=== PATIENT | female | born 1990 | race Caucasian/White ===

== ENCOUNTER 2016-09-25 19:30 | Emergency (ER) | payer OTHER ==
[~2016-09-25 19:30] MED LIST: IBUPROFEN200 M1 PO; PRENATAL1 TAB PO; TUMS500 MG PO; TYLENOL325 MG PO
--- NOTE | 2016-09-25 20:31 | ED NURSING NOTES ---
Clinical Report - Nurses [facility] [address] [place] [address] 09/25/2016 19:30 Patient: DAISHA MORRIS TRIAGE Triage time 19:56. Acuity: LEVEL 3. Chief Complaint: COUGH, RUNNY NOSE, FEVER and "FLU" and (diarrhea). Alert. No acute distress. SEPSIS SCREEN: Sepsis Screen: negative. Negative (no infection suspected/documented). --20:03 Zonia Etienne R.N. 19:56 09/25/16. BP: 127/77 taken on the left arm, while sitting. HR: 99. RR: 20. O2 saturation: 100%. Temp: 97.8 F. Pain level now: 8/10. --20:03 Zonia Etienne R.N. 19:56 09/25/16. BP: 127/77 taken on the left arm, while sitting. HR: 99. RR: 20. O2 saturation: 100%. Temp: 97.8 F. Pain level now: 8/10. --20:04 Zonia Etienne R.N. Weight: 113.3 kg estimated. Height/Length: 64 inches Estimated. BMI: 42.9. --19:59 Zonia Etienne R.N. Medications None. --19:57 Zonia Etienne R.N. Allergies No Known Drug Allergy. --19:57 Zonia Etienne R.N. History Arrived by private vehicle. Historian: patient and family. Accompanied by family. Primary physician (lfory). Onset. (2 - 3 days ago). She has had a nasal discharge, chest congestion, chills, fatigue and sinus pain. She has had difficulty breathing. 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 (nyquil, benadryl). PAST MEDICAL HX: Immunizations: status is unknown. Last normal menstrual period- Aug 26. SOCIAL HX: Light tobacco smoker (cigarette)- less than 1/2 a pack per day. No alcohol use or drug use. FALL RISK ASSESSMENT: Fall risk assessment completed. No fall risk identified. NUTRITIONAL RISK ASSESSMENT: The nutritional risk assessment revealed no deficiencies. FUNCTIONAL ASSESSMENT: Functional assessment: no impairments noted. LEARNING NEEDS ASSESSMENT: The learning needs assessment revealed no barriers. SKIN INTEGRITY ASSESSMENT: Skin integrity risk assessment completed. No skin integrity risk identified. --20:03 Zonia Etienne R.N. ADDITIONAL SURGERIES: Ankle rt . Dilatation & Curettage. Tonsillectomy. --19:58 Zonia Etienne R.N. Interventions ID band on patient. To room. --20:03 Zonia Etienne R.N. PHYSICAL ASSESSMENT Ambulatory to room. GENERAL / NEURO / PSYCH: Alert. Oriented X 4. Appears anxious. HEENT: Mucous membranes are pink. RESPIRATORY: Respirations not labored. CVS: Capillary refill less than 2 seconds. SKIN: Skin is warm and dry. Normal skin turgor. --20:05 Zonia Etienne R.N. NURSING PROGRESS NOTES Head of bed elevated. Two patient identifiers checked. Call light placed in reach. Patient ready for evaluation. --20:06 Zonia Etienne R.N. DISPOSITION / DISCHARGE 20:50. Condition at departure: unchanged. No learning barriers present. Discharge instructions provided and reviewed with the patient. Reviewed medication(s) side effects, precautions, dosing and course information. Prescription(s) given to the patient. Patient verbalized understanding. Written instructions provided in Panamanian. The patient was discharged home and accompanied by family. She left the Emergency Department ambulatory and via private vehicle. Family member driving. Medication list reviewed and validated. --21:03 Zonia Etienne R.N. 19:56 09/25/16. BP: 127/77 taken on the left arm, while sitting. HR: 99. RR: 20. O2 saturation: 100%. Temp: 97.8 F. Pain level now: 04/21. --21:03 Zonia Etienne R.N. Locked/Released at 09/25/2016 21:04 by Zonia Etienne R.N.
--- NOTE | 2016-09-25 20:31 | ED NURSING NOTES ---
Clinical Report - Nurses [facility] [address] [place] [address] 09/25/2016 19:30 Patient: DAISHA MORRIS TRIAGE Triage time 19:56. Acuity: LEVEL 3. Chief Complaint: COUGH, RUNNY NOSE, FEVER and "FLU" and (diarrhea). Alert. No acute distress. SEPSIS SCREEN: Sepsis Screen: negative. Negative (no infection suspected/documented). --20:03 Zonia Etienne R.N. 19:56 09/25/16. BP: 127/77 taken on the left arm, while sitting. HR: 99. RR: 20. O2 saturation: 100%. Temp: 97.8 F. Pain level now: 8/10. --20:03 Zonia Etienne R.N. 19:56 09/25/16. BP: 127/77 taken on the left arm, while sitting. HR: 99. RR: 20. O2 saturation: 100%. Temp: 97.8 F. Pain level now: 8/10. --20:04 Zonia Etienne R.N. Weight: 113.3 kg estimated. Height/Length: 64 inches Estimated. BMI: 42.9. --19:59 Zonia Etienne R.N. Medications None. --19:57 Zonia Etienne R.N. Allergies No Known Drug Allergy. --19:57 Zonia Etienne R.N. History Arrived by private vehicle. Historian: patient and family. Accompanied by family. Primary physician (flory). Onset. (2 - 3 days ago). She has had a nasal discharge, chest congestion, chills, fatigue and sinus pain. She has had difficulty breathing. 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 (nyquil, benadryl). PAST MEDICAL HX: Immunizations: status is unknown. Last normal menstrual period- Aug 26. SOCIAL HX: Light tobacco smoker (cigarette)- less than 1/2 a pack per day. No alcohol use or drug use. FALL RISK ASSESSMENT: Fall risk assessment completed. No fall risk identified. NUTRITIONAL RISK ASSESSMENT: The nutritional risk assessment revealed no deficiencies. FUNCTIONAL ASSESSMENT: Functional assessment: no impairments noted. LEARNING NEEDS ASSESSMENT: The learning needs assessment revealed no barriers. SKIN INTEGRITY ASSESSMENT: Skin integrity risk assessment completed. No skin integrity risk identified. --20:03 Zonia Etienne R.N. ADDITIONAL SURGERIES: Ankle rt . Dilatation & Curettage. Tonsillectomy. --19:58 Zonia Etienne R.N. Interventions ID band on patient. To room. --20:03 Zonia Etienne R.N. PHYSICAL ASSESSMENT Ambulatory to room. GENERAL / NEURO / PSYCH: Alert. Oriented X 4. Appears anxious. HEENT: Mucous membranes are pink. RESPIRATORY: Respirations not labored. CVS: Capillary refill less than 2 seconds. SKIN: Skin is warm and dry. Normal skin turgor. --20:05 Zonia Etienne R.N. NURSING PROGRESS NOTES Head of bed elevated. Two patient identifiers checked. Call light placed in reach. Patient ready for evaluation. --20:06 Zonia Etienne R.N. DISPOSITION / DISCHARGE 20:50. Condition at departure: unchanged. No learning barriers present. Discharge instructions provided and reviewed with the patient. Reviewed medication(s) side effects, precautions, dosing and course information. Prescription(s) given to the patient. Patient verbalized understanding. Written instructions provided in [place]. The patient was discharged home and accompanied by family. She left the Emergency Department ambulatory and via private vehicle. Family member driving. Medication list reviewed and validated. --21:03 Zonia Etienne R.N. 19:56 09/25/16. BP: 127/77 taken on the left arm, while sitting. HR: 99. RR: 20. O2 saturation: 100%. Temp: 97.8 F. Pain level now: 04/21. --21:03 Zonia Etienne R.N. Locked/Released at 09/25/2016 21:04 by Zonia Etienne R.N.
--- NOTE | 2016-09-25 20:31 | ED CLINICAL REPORT ---
Clinical Report - Physicians/Mid Levels [facility] [address] [place] [address] 09/25/2016 19:30 Patient: DAISHA MORRIS Time Seen: 2004; initial patient contact, initial documentation, patient care assumed. Arrived- By private vehicle. Historian- patient. HISTORY OF PRESENT ILLNESS Chief Complaint: COUGH and FEVER. This started about 2 weeks ago and is still present. The illness is described as moderate. The patient has had a cough, nasal congestion, fever of 102 F, muscle aches and a nasal discharge. No sputum production, difficulty breathing, chest discomfort or pain or sore throat. No sinus pressure, sinus drainage or ear pain. Additional history - The patient has had contact with a sick family member. Symptoms of the sick contact include fever and cough. (multiple family members sick). They have had similar symptoms. Similar symptoms previously: None. Recent medical care: Not recently seen/assessed. REVIEW OF SYSTEMS All systems otherwise negative, except as recorded above. PAST HISTORY See nurses notes. ADDITIONAL SURGERIES: Ankle rt . Dilatation & Curettage. Tonsillectomy. --19:58 Zonia Etienne R.N. SOCIAL HISTORY Light tobacco smoker. Second-hand smoke exposure. No alcohol use or drug use. No recent travel. Is a local resident. FAMILY HISTORY Negative. ADDITIONAL NOTES The nursing notes have been reviewed with agreement regarding the chief complaint, HPI, ROS, PMH and patient medications and allergies. PHYSICAL EXAM Vital Signs: 09/25/2016 19:56 BP: 127/77. HR: 99. RR: 20. O2 saturation: 100%. Temp: 97.8 F. Pain level now: 8/10. Have been reviewed as normal and appear to be correct. Appearance: Alert. No acute distress. Eyes: Pupils equal, round and reactive to light. Eyes normal inspection. ENT: Ears normal. Nose normal. Pharynx normal. Uvula midline. Neck: Normal inspection. Neck supple. CVS: Normal heart rate and rhythm. Heart sounds normal. Pulses normal. Respiratory: No respiratory distress. Breath sounds normal. Abdomen: Soft and nontender. No organomegaly. Back: Normal inspection. Skin: Skin warm and dry. Normal skin color. No rash. Normal skin turgor. Extremities: Extremities exhibit normal ROM. No lower extremity edema. Neuro: Oriented X 3. No motor deficit. No sensory deficit. PROGRESS AND PROCEDURES Patient counseled in person regarding the patient's stable condition and diagnosis. 20:31. Differential Diagnosis: Other possible considerations: flu, allergies, sinusitis, bronchitis, uri, pneumonia. Above considerations are based on history and physical exam. Differential diagnosis was discussed with patient. Disposition: Discharged home in good and unchanged condition (20:31). Condition: good and stable. CLINICAL IMPRESSION Acute bacterial mucopurulent bronchitis. INSTRUCTIONS Alternate Tylenol (Acetaminophen) and Motrin (Ibuprofen) for fever, temperature greater than 101 degrees. Take according to label instructions. Drink plenty of fluids for the next 24 hours until better. Do not smoke. Warnings: GENERAL WARNINGS: Return or contact your physician immediately if your condition worsens or changes unexpectedly, if not improving as expected, or if other problems arise. Specifically return if problem worsens. Prescription Medications: Zithromax 250 mg tablets: take 2 orally today, followed by 1 daily for the next 4 days. No refills. Substitution is permissible. Follow-up: Follow up with your doctor in about five days even if well. Summary of care provided to patient. Understanding of the discharge instructions verbalized by patient. (Electronically signed by Radha Walker A.R.N.P. 09/25/2016 22:09)
--- NOTE | 2016-09-25 22:09 | ED MED RECONCILIATION SUMMARY ---
Patient: DAISHA MORRIS Medication [facility]conciliation [facility] VisitID: [id number] [address] [place] [address] 26y, F Registration Date/Time: 09/25/2016 Weight: 113.3 kg Height/Length: 64 in. BMI: 42.9 ALLERGIES: No Known Drug Allergy The patient's Home Medications are listed below: NONE. The source(s) of the original Home Medication information: Not obtained. The following Medications were given to the patient in the Emergency Department: None. The following Medications were prescribed to the patient: Zithromax 250 mg tablets: take 2 orally today, followed by 1 daily for the next 4 days. No refills. Substitution is permissible. -- Radha Walker A.R.N.P.
--- NOTE | 2016-09-25 22:09 | ED MAR SUMMARY ---
..... Medication Administration Record [facility] [address], [place] [id number] Patient: DAISHA MORRIS Visit ID: [id number] 26y, F Weight: 113.3 kg Height/Length: 64 in BMI: 42.9 ALLERGIES: No Known Drug Allergy
--- NOTE | 2016-09-25 22:09 | ED MED RECONCILIATION SUMMARY ---
Patient: DAISHA MORRIS Medication Reconciliation Report [facility] VisitID: [id number] [address] [place] [address] 26y, F Registration Date/Time: 09/25/2016 Weight: 113.3 kg Height/Length: 64 in. BMI: 42.9 ALLERGIES: No Known Drug Allergy The patient's Home Medications are listed below: NONE. The source(s) of the original Home Medication information: Not obtained. The following Medications were given to the patient in the Emergency Department: None. The following Medications were prescribed to the patient: Zithromax 250 mg tablets: take 2 orally today, followed by 1 daily for the next 4 days. No refills. Substitution is permissible. -- Radha Walker A.R.N.P.
--- NOTE | 2016-09-25 22:09 | ED MAR SUMMARY ---
..... Medication Administration Record [facility] [address], [place] [id number] Patient: DAISHA MORRIS Visit ID: [id number] 26y, F Weight: 113.3 kg Height/Length: 64 in BMI: 42.9 ALLERGIES: No Known Drug Allergy
--- NOTE | 2016-09-25 22:09 | ED DISCHARGE INSTRUCTIONS ---
Patient: DAISHA MORRIS General Instructions [facility] VisitID: [id number] [place] [address] 26y, F Registration Date/Time: 09/25/2016 INSTRUCTIONS Alternate Tylenol (Acetaminophen) and Motrin (Ibuprofen) for fever, temperature greater than 101 degrees. Take according to label instructions. Drink plenty of fluids for the next 24 hours until better. Do not smoke. Warnings: GENERAL WARNINGS: Return or contact your physician immediately if your condition worsens or changes unexpectedly, if not improving as expected, or if other problems arise. Specifically return if problem worsens. Prescription Medications: Zithromax 250 mg tablets: take 2 orally today, followed by 1 daily for the next 4 days. No refills. Substitution is permissible. Follow-up: Follow up with your doctor in about five days even if well. Summary of care provided to patient. Understanding of the discharge instructions verbalized by patient. ADDITIONAL INFORMATION Bronchitis (Adult: Abx Tx) BRONCHITIS is an infection of the air passages (bronchial tubes). It often occurs during the common cold. Symptoms include cough with mucus (phlegm) and low-grade fever. Bronchitis usually lasts 7-14 days. Mild cases can be treated with simple home remedies. More severe infection is treated with an antibiotic. Home Care: If symptoms are severe, rest at home for the first 2-3 days. When you resume activity, don't let yourself get too tired. Do not smoke. Avoid being exposed to the smoke of others. You may use acetaminophen (Tylenol) or ibuprofen (Motrin, Advil) to control fever or pain, unless another medicine was prescribed for this. [NOTE: If you have chronic liver or kidney disease or ever had a stomach ulcer or GI bleeding, talk with your doctor before using these medicines.] Your appetite may be poor, so a light diet is fine. Avoid dehydration by drinking 6-8 glasses of fluids per day (water, soft, drinks, juices, tea, soup, etc.). Extra fluids will help loosen secretions in the lungs. [id number] cough medicines that containdextromethorphan(such as Robitussin DM) and decongestants (Actifed or Sudafed) may help relieve cough and congestion. [NOTE: Do not use decongestants if you have high blood pressure.] Finish all antibiotic medicine, even if you are feeling better after only a few days. Follow Up with your doctor or as directed if you dont start to feel better after three days. [NOTE: If you are age 65 or older, or if you have chronic asthma or COPD, we recommend a PNEUMOCOCCAL VACCINATION every five years and a yearly INFLUENZAVACCINATION (FLU-SHOT) every . Ask your doctor about this. If you had an X-ray, a radiologist will review it. You will be notified of any new findings that may affect your care.] Get Prompt Medical Attention if any of the following occur: Fever over 100.4F (38.0C) for more than three days Trouble breathing, wheezing or pain with breathing Coughing up blood or increased amounts of colored sputum Weakness, drowsiness, headache, facial pain, ear pain or a stiff neck Fever Control (Adult) A fever is a natural reaction of the body to an illness. In most cases, the temperature itself is not harmful. It actually helps the body fight infections. A fever does not need to be treated unless you feel very uncomfortable. Home Care If you feel warm, check your temperature. If you feel very uncomfortable and your temperature is at or higher than 100.4F (38C) oral, you may take acetaminophen (Tylenol) every 4 to 6 hours. If you cant take or keep down oral medicine, ask your pharmacist for Tylenol suppositories, which you can get without a prescription. If the fever does not respond to acetaminophen within 1 hour, take ibuprofen (Advil or Motrin). If this works, keep taking the ibuprofen every 6 to 8 hours. Note: If you have chronic liver or kidney disease or ever had a stomach ulcer or GI bleeding, talk with your doctor before using these medications. If either medication alone does not keep the fever down, you may alternate the two medicines every 3 to 4 hours, only if your healthcare provider has instructed you to do so. For example, take Motrin then wait 3 hours, take Tylenol then wait 3 hours, take Motrin, and so on. Follow your healthcare providers instructions exactly. Clothing: Keep clothing light because excess body heat is lost through the skin. The fever will go up if you wear extra layers or wrap in blankets. Fluids: Fever causes the body to lose water through evaporation. Drink plenty of fluids such as water, juice, clear sodas, gemma bhupendra, or lemonade. Do not use aspirin in anyone under 18 years of age who is ill with a fever. It can cause severe liver damage. Follow Up with your doctor or as advised by our staff if you do not get better after 48 hours. Get Prompt Medical Attention if any of the following occur: Fever does not get better after taking fever medication Fast or difficult breathing Earache, sinus pain, stiff or painful neck, headache, repeated diarrhea or vomiting You feel unusually irritable, drowsy, or confused A rash appears You feel weak or dizzy, or that you might faint Azithromycin Oral tablet What is this medicine? AZITHROMYCIN (az ith phyllis CAO sin) is a macrolide antibiotic. It is used to treat or prevent certain kinds of bacterial infections. It will not work for colds, flu, or other viral infections. How should I use this medicine? Take this medicine by mouth with a full glass of water. Follow the directions on the prescription label. The tablets can be taken with food or on an empty stomach. If the medicine upsets your stomach, take it with food. Take your medicine at regular intervals. Do not take your medicine more often than directed. Take all of your medicine as directed even if you think your are better. Do not skip doses or stop your medicine early. Talk to your personalized living manager regarding the use of this medicine in children. Special care may be needed. What side effects may I notice from receiving this medicine? Side effects that you should report to your doctor or health cardiac care nurse as soon as possible: allergic reactions like skin rash, itching or hives, swelling of the face, lips, or tongue confusion, nightmares or hallucinations dark urine difficulty breathing hearing loss irregular heartbeat or chest pain pain or difficulty passing urine redness, blistering, peeling or loosening of the skin, including inside the mouth white patches or sores in the mouth yellowing of the eyes or skin Side effects that usually do not require medical attention (report to your doctor or health cardiac care nurse if they continue or are bothersome): diarrhea dizziness, drowsiness headache stomach upset or vomiting tooth discoloration vaginal irritation What may interact with this medicine? Do not take this medicine with any of the following medications: lincomycin This medicine may also interact with the following medications: amiodarone antacids cyclosporine digoxin magnesium nelfinavir phenytoin warfarin What if I miss a dose? If you miss a dose, take it as soon as you can. If it is almost time for your next dose, take only that dose. Do not take double or extra doses. Where should I keep my medicine? Keep out of the reach of children. Store at room temperature between 15 and 30 degrees C (59 and 86 degrees F). Throw away any unused medicine after the expiration date. What should I tell my health care provider before I take this medicine? They need to know if you have any of these conditions: kidney disease liver disease irregular heartbeat or heart disease an unusual or allergic reaction to azithromycin, erythromycin, other macrolide antibiotics, foods, dyes, or preservatives or trying to get breast-feeding What should I watch for while using this medicine? Tell your doctor or health cardiac care nurse if your symptoms do not improve. Do not treat diarrhea with over the counter products. Contact your doctor if you have diarrhea that lasts more than 2 days or if it is severe and watery. This medicine can make you more sensitive to the sun. Keep out of the sun. If you cannot avoid being in the sun, wear protective clothing and use sunscreen. Do not use sun lamps or tanning beds/booths. You have been given the following additional information: Bronchitis, Antiobiotic Treatment (Adult) Fever Control (Adult) Azithromycin Oral tablet (Electronically signed by Radha Walker A.R.N.P. 09/25/2016 22:09)
== END 2016-09-25 20:50 | disposition home or self-care (01) ==
LOC: ED SRH 19:30
DX: J20.8 Acute bronchitis due to other specified organisms (principal); F17.200 Nicotine dependence, unspecified, uncomplicated

== ENCOUNTER 2016-10-27 13:51 | Outpatient (CLI) | payer OTHER ==
--- NOTE | 2016-10-27 14:41 | DIAGNOSTIC IMAGING REPORT ---
PROCEDURE: US BREAST ULTRASOUND - RIGHT INDICATION: MASTALGIA RIGHT BREAST TECHNIQUE: Velaqzuez scale ultrasound of the right breast. COMPARISON: None. FINDINGS: Normal breast parenchyma without evidence of cysts, mass or suspicious acoustic shadowing. IMPRESSION: 1. Normal right breast ultrasound 2. BIRADS 1- Negative.
== END 2016-10-27 23:00 ==
LOC: US SRH 13:51
DX: N64.4 Mastodynia (principal)

== ENCOUNTER 2017-03-04 10:34 | Outpatient (CLI) | payer OTHER ==
--- NOTE | 2017-03-04 14:36 | DIAGNOSTIC IMAGING REPORT ---
PROCEDURE: MR LOWER EXT JOINT WO CONT-RT INDICATION: RT ANKLE OA TECHNIQUE: T1 and STIR sagittal, axial, coronal and coronal-oblique images. COMPARISON: Right ankle x-ray 11/16/2016. FINDINGS: Torn anterior talofibular ligament. Tibiofibular, posterior talofibular, calcaneofibular and deltoid ligaments are intact. The peroneus longus, peroneus brevis, flexor hallucis longus, posterior tibialis and flexor digitorum longus tendons are intact. Normal extensor tendons. Normal Achilles tendon. Normal tibiotalar joint. No fracture or effusion. Normal sinus tarsi. Normal plantar fascia. IMPRESSION: 1. Torn anterior talofibular ligament.
== END 2017-03-04 23:00 | disposition home or self-care (01) ==
LOC: MRI SRH 10:34
DX: S93.491A Sprain of other ligament of right ankle, initial encounter (principal)

== ENCOUNTER 2017-03-24 22:30 | Emergency (ER) | payer OTHER ==
--- NOTE | 2017-03-25 03:28 | ED NURSING NOTES ---
Clinical Report - Nurses Formerly [facility] [address] [place] [address] 03/24/2017 22:32 [id number] Triage time 00:38. Acuity: LEVEL 4. Chief Complaint: ABDOMINAL CRAMPS. Alert. No acute distress. --00:47 Sarita Carballo R.N. 00:37 03/25/17. BP: 121/71. HR: 97. RR: 16. O2 saturation: 100%. Temp: 98.5 F (oral). Pain level now: 0/10. --00:47 Sarita Carballo R.N. Weight: 92.9 kg stated. Height/Length: 69 inches Per Patient. BMI: 30.3. --00:42 Sarita Carballo R.N. Medications Amoxicillin Oral (Capsule 500 mg) 1 capsule, three times daily, ear infection, started 7 days ago. --00:47 Sarita Carballo R.N. The following entry was struck by Sarita Carballo R.N., 00:46 (03/25/17) Reason - other(pt forgot). <<STRICKEN ENTRY-- None. --00:42 Sarita Carballo R.N. --END STRIKE>>. Allergies No Known Drug Allergy. --00:42 Sarita Carballo R.N. History Arrived by private vehicle. Historian: patient. Accompanied by friend. Primary physician ([place]). ( pt has taken 5 home tests with + results, states she has been cramping all day & "something just doesn't fele right"). Onset. (on & off all day (past 24hrs)). She has had a cough (for about 1 1/2 weeks). Treatment SALES AND MERCHANDISING REPRESENTATIVE: None. PAST MEDICAL HX: Immunizations: up-to-date. Last normal menstrual period- February 162016. OB history: G 5; P 2; Ab 2. SOCIAL HX: Current some days smoker. No alcohol use or drug use. NUTRITIONAL RISK ASSESSMENT: The nutritional risk assessment revealed no deficiencies. FUNCTIONAL ASSESSMENT: Functional assessment: no impairments noted. --00:47 Sarita Carballo R.N. ADDITIONAL SURGERIES: Ankle rt . Dilatation & Curettage. Tonsillectomy. --00:42 Sarita Carballo R.N. Interventions ID band on patient. To treatment room. --00:47 Sarita Carballo R.N. PHYSICAL ASSESSMENT Ambulatory to room. GENERAL / NEURO / PSYCH: Alert. Oriented X 4. Appears in no acute distress. HEENT: Mucous membranes are pink. RESPIRATORY: Respirations not labored. CVS: Capillary refill less than 2 seconds. SKIN: Skin is warm and dry. --00:47 Sarita Carballo R.N. NURSING PROGRESS NOTES Head of bed elevated. Two patient identifiers checked. Call light placed in reach. Side rails up x 1. Bed placed in lowest position. Brakes of bed on. --00:47 Sarita Carballo R.N. Patient ready for evaluation- chart flagged. --00:47 Sarita Carballo R.N. Patient ID band checked for patient name and birthdate: patient confirmed. Instructions provided to collect clean catch urine and patient verbalized understanding. Clean catch urine collected with return of yellow-colored clear urine; sample sent to lab. Specimen labeled in the presence of the patient (small amount of urine collected). --00:51 Sarita Carballo R.N. 02:29 03/25/2017 Site #1 started via IV in the right antecubital space with an 20g angiocath, with aseptic technique and good blood return; one attempt. Blood drawn: rainbow set. Labeled in the presence of the patient and sent to the lab. Saline lock flushed with 10 mL saline. --02:31 Sarita Carballo R.N. ( pt instructed to remove clothes from the waist down to prepare for pelvic exam.). --02:31 Sarita Carballo R.N. PELVIC EXAM: Pelvic exam performed by ED physician. Assisted by one nurse. Preparation: patient placed in lithotomy position. Procedure: speculum and bimanual exam. Specimens collected and sent to lab: GC, chlamydia and wet prep. Status post-procedure: she was stable. Total time of assist / procedure: 15 minutes. --02:41 Sarita Carballo R.N. 02:30 03/25/2017 Started bag #1 1000 mL IV Fluids IV NS (Saline); at 1000 mL/hr via site #1. Allergies verified and confirmed 5 rights. IV patency established. IV site checked: no pain, redness, or swelling. IV flushed thoroughly pre- and post-medication administration. --02:42 Sarita Carballo R.N. DISPOSITION / DISCHARGE 03:45 03/25/2017 Site #1 removed upon discharge. Catheter intact. Manual pressure and bandage applied. --04:14 Sarita Carballo R.N. 03:45. Condition at departure: stable. No learning barriers present. Discharge instructions provided and reviewed with the patient. Reviewed medication(s) side effects, precautions, dosing and course information. Prescription(s) given to the patient. Patient verbalized understanding. Written instructions provided in Filipino. The patient was discharged home and accompanied by spouse. She left the Emergency Department ambulatory and via private vehicle. Spouse driving. --04:15 Sarita Carballo R.N. 03:45 03/25/17. BP: 99/63. HR: 73. RR: 15. O2 saturation: 100% on room air. Temp: deferred. Pain level now: 0/10. --04:15 Sarita Carballo R.N. Locked/Released at 03/25/2017 4:16 by Sarita Carballo R.N.
--- NOTE | 2017-03-25 03:28 | ED CLINICAL REPORT ---
Clinical Report - Physicians/Mid Levels [facility] [address] [place] [address] 03/24/2017 22:32 Patient: DAISHA MORRIS Time Seen: 01:48; initial patient contact. Arrived- By private vehicle. Historian- patient. HISTORY OF PRESENT ILLNESS Chief Complaint: ABDOMINAL PAIN. This started last night and is still present (persistent). It was gradual in onset and has been waxing/waning. At its maximum, severity described as mild. When seen in the E.D., severity described as mild. Modifying factors. Not worsened by anything. Not relieved by anything. It is described as cramping. No radiation. It is described as located in the right pelvis and left pelvis and in the pelvic area. No nausea, loss of appetite, vomiting or diarrhea. Similar symptoms previously: None. Recent medical care: Not recently seen/assessed. REVIEW OF SYSTEMS Last normal menstrual period- February 16. 5. Para 2. Abortions 2. No constipation, difficulty with urination, pain with urination, abnormal bleeding or irregular periods. No fever, chills, pelvic pain or vaginal discharge. All systems otherwise negative, except as recorded above. PAST HISTORY Ankle rt . Dilatation & Curettage. Tonsillectomy. SOCIAL HISTORY Current some days smoker. No alcohol use or drug use. ADDITIONAL NOTES The nursing notes have been reviewed. PHYSICAL EXAM Vital Signs: 03/25/2017 00:37 BP: 121/71. HR: 97. RR: 16. O2 saturation: 100%. Temp: 98.5 F. Pain level now: 0/10. Have been reviewed as normal. Appearance: Alert. Oriented X3. Eyes: Eyes normal inspection. ENT: Pharynx normal. Neck: Normal inspection. CVS: Normal heart rate and rhythm. Heart sounds normal. Respiratory: No respiratory distress. Breath sounds normal. Abdomen: Soft and nontender. Bowel sounds normal. No mass. Femoral pulses equal. : Normal external exam. Speculum exam normal. Bimanual exam normal. Rectal: (Female RN Sarita Damon present for exam). Skin: Skin warm and dry. Normal skin color. Extremities: No lower extremity edema. Neuro: Oriented X 3. LABS, X-RAYS, AND EKG Laboratory Tests: UA-Culture if indicated: (DAMON: 03/25/2017 00:40) ( [facility] 03/25/2017 01:04) Final results Test Result Flag Units (Reference) URINE COLOR YELLOW URINE APPEARANCE CLEAR URINE GLUCOSE NEGATIVE (NEGATIVE) URINE BILIRUBIN NEGATIVE (NEGATIVE) URINE KETONE NEGATIVE (NEGATIVE) URINE SPECIFIC GRAVITY 1.020 (1.010-1.030) URINE PH 6.0 (5.0-8.0) URINE PROTEIN NEGATIVE (NEGATIVE) URINE UROBILINOGEN 0.2 EU/dL (0.2-1.0) URINE NITRITE NEGATIVE (NEGATIVE) URINE BLOOD NEGATIVE (NEGATIVE) URINE LEUK ESTERASE POSITIVE (NEGATIVE) URINE RBC 0-1 rbc/hpf (0-1) URINE WBC 1-3 wbc/hpf (0-1) URINE EPITHELIAL CELLS 0-1 EPI/hpf (0-5) URINE BACTERIA TRACE (<1+) (NONE SEEN) URINE COMMENT CULTURE INDICATED URINE CULTURES ARE SET-UP BASED ON THE FOLLOWING CRITERIA:POSITIVE NITRITEPOSITIVE LEUKOCYTE ESTERASEGREATER THAN 10 WHITE BLOOD CELLSMODERATE (2+) OR GREATER BACTERIA Urine: (DAMON: 03/25/2017 00:40) ( [facility] 03/25/2017 00:55) Final results Test Result Flag Units (Reference) URINE POSITIVE CBC w Diff: (DAMON: 03/25/2017 02:27) ( [facility] 03/25/2017 02:34) Final results Test Result Flag Units (Reference) WHITE BLOOD COUNT 11.0 K/uL (4.5-11.5) RED BLOOD COUNT 4.36 M/uL (4.00-5.20) HEMOGLOBIN 13.6 gm/dL (12.0-16.0) HEMATOCRIT 40.0 % (36.0-46.0) MEAN CELL VOLUME 92 fL (80-100) MEAN CORPUSCULAR HGB 31 pg (26-34) MEAN CORPUSCULAR HGB CONC 34 g/dL (31-37) RED CELL DISTRIBUTION WIDTH 12.4 % (11.6-14.8) PLATELET COUNT 222 K/uL (150-400) NEUTROPHIL % 77.8 H % (50-75) LYMPH % 15.3 L % (25-40) MONO % 6.2 % (3-14) EOSINOPHIL % 0.4 % (0-4) BASOPHIL % 0.3 % (0-2) CMP: (DAMON: 03/25/2017 02:27) ( [facility] 03/25/2017 02:53) Final results Test Result Flag Units (Reference) GLUCOSE 119 H mg/dL (70-110) BUN 11 mg/dL (7-18) CREATININE 0.7 mg/dL (0.6-1.3) Estimated GFR >60 mL/min Estimated GFR- >60 mL/min Note: Persistent reduction over 3 months in eGFR<60 mL/min/1.73 m2 defines CKD. Patients with eGFR values>=60 mL/min/1.73 m2 may also have CKD if evidence ofpersistent proteinuria. Additional information may be foundat www.kidney.org. SODIUM 140 mmol/L (136-145) POTASSIUM 3.3 L mmol/L (3.5-5.1) CHLORIDE 105 mmol/L (98-107) CARBON DIOXIDE 23 mmol/L (21-32) CALCIUM 8.4 L mg/dL (8.5-10.1) TOTAL PROTEIN 7.4 g/dL (6.4-8.2) ALBUMIN 3.9 g/dL (3.3-5.0) BILIRUBIN, TOTAL 0.4 mg/dL (0.0-1.0) ALKALINE PHOSPHATASE 73 U/L (46-116) AST (SGOT) 8 L U/L (15-37) ALT (SGPT) 21 U/L (12-78) BETA HCG, QUANTITATIVE 104 mIU/mL REFERENCE RANGE:Adult Males: <2 mIU/mLNon- Females: <6 mIU/mL Females:Approximate Approximate hCGGestational Age Range (mIU/mL) 0-1 week 0-501-2 weeks 40-3002-3 weeks 100-12033-4 weeks 500-34384-1 months 5,000-200,0002-3 months 10,000-100,0002nd trimester 3,000-50,0003rd trimester 1,000-50,000 Wet Prep: (DAMON: 03/25/2017 02:38) ( MsgRcvd 03/25/2017 02:46) Final results SPECIMEN DESCRIPTION: ... Test Result Flag Units (Reference) WET MOUNT CLUE CELLS:: FEW * EPITHELIAL CELLS: MODERATE -- SOURCE?: CERVIX WHITE BLOOD CELLS: MODERATE TRICHOMONAS:: NONE -- YEAST:: NONE . PROGRESS AND PROCEDURES Disposition: Discharged home in good condition. Condition: good. CLINICAL IMPRESSION ; positive test in emergency department. (B HCG is only 100). Acute urinary tract infection with cystitis. Acute mild bacterial vaginitis INSTRUCTIONS Warnings: GENERAL WARNINGS: Return or contact your physician immediately if your condition worsens or changes unexpectedly, if not improving as expected, or if other problems arise. SPECIFICALLY, return if there is no improvement in the pain in the pelvis. Your Current Medications: CONTINUE TAKING THE FOLLOWING MEDICATIONS: Amoxicillin Oral : Capsule 500 mg, 1 capsule three times daily, Started: 7 days ago, ear infection. Prescription Medications: Macrobid 100 mg: take 1 capsule orally every 12 hours for 7 days. No refill. Substitution is permissible. Clindamycin 300 mg: take 1 capsule orally every 12 hours for 7 days. No refill. Follow-up: Follow up with your doctor in about three days. Call for an appointment. Screening today revealed the patient's blood pressure to be in the pre-hypertensive range. The patient should follow up with a primary care provider for blood pressure management. (Electronically signed by Camron Mata Dr. 03/25/2017 3:43)
--- NOTE | 2017-03-25 03:29 | ED ORDER SUMMARY ---
..... Patient: DAISHA MORRIS [facility]Sheet [facility] VisitID: [id number] [place] [address] 27y, F Registration Date/Time: 03/24/2017 ORDER SHEET Weight: 92.9 kg (stated) Allergies: No Known Drug Allergy GENERAL ORDERS: UA-Culture if indicated Urgent (00:50 03/25/2017 RCollier R.N. per protocol) (Ack 0:59 RKaruga) (1:29 RCollier R.N.) Urine Urgent (00:50 03/25/2017 RCollier R.N. per protocol) (Ack 0:59 RKaruga) (1:29 RCollier R.N.) Serum Quantitative Urgent (02:08 03/25/2017 Benny Alatorre) (Ack 2:13 RKaruga) (2:42 RCollier R.N.) GC/Chlamydia (Cervix) (...) Urgent (02:08 03/25/2017 Benny Alatorre) (Ack 2:13 RKaruga) (2:42 RCollier R.N.) Wet Prep (Cervix) (...) Urgent (02:08 03/25/2017 Benny Alatorre) (Ack 2:13 RKaruga) (2:42 RCollier R.N.) CBC w Diff Urgent (02:08 03/25/2017 Benny Alatorre) (Ack 2:13 RKaruga) (2:42 RCollier R.N.) CMP Urgent (02:08 03/25/2017 Benny Alatorre) (Ack 2:13 RKaruga) (2:42 RCollier R.N.) MEDICATION ORDERS: IV FLUIDS: IV NS : initial bolus none -, then 1000 mL/hr for X1 (NOW) (02:08 03/25/2017 Benny Alatorre) (Ack 2:22 RCollier R.N.) (2:42 RCollier R.N.) ORDER SHEET NOTES: [Electronically signed by Camron Mata Dr. (03:43 03/25/2017)] [Electronically signed by Sarita Carballo R.N. (04:16 03/25/2017)] [Electronically locked/signed by Sarita Carballo R.N. (04:16 03/25/2017)]
--- NOTE | 2017-03-25 03:29 | ED ORDER SUMMARY ---
..... Patient: DAISHA MORRIS OrderSheet [facility] VisitID: [id number] [place] [address] 27y, F Registration Date/Time: 03/24/2017 ORDER SHEET Weight: 92.9 kg (stated) Allergies: No Known Drug Allergy GENERAL ORDERS: UA-Culture if indicated Urgent (00:50 03/25/2017 RCollier R.N. per protocol) (Ack 0:59 RKaruga) (1:29 RCollier R.N.) Urine Urgent (00:50 03/25/2017 RCollier R.N. per protocol) (Ack 0:59 RKaruga) (1:29 RCollier R.N.) Serum Quantitative Urgent (02:08 03/25/2017 Benny Alatorre) (Ack 2:13 RKaruga) (2:42 RCollier R.N.) GC/Chlamydia (Cervix) (...) Urgent (02:08 03/25/2017 Benny Alatorre) (Ack 2:13 RKaruga) (2:42 RCollier R.N.) Wet Prep (Cervix) (...) Urgent (02:08 03/25/2017 Benny Alatorre) (Ack 2:13 RKaruga) (2:42 RCollier R.N.) CBC w Diff Urgent (02:08 03/25/2017 Benny Alatorre) (Ack 2:13 RKaruga) (2:42 RCollier R.N.) CMP Urgent (02:08 03/25/2017 Benny Alatorre) (Ack 2:13 RKaruga) (2:42 RCollier R.N.) MEDICATION ORDERS: IV FLUIDS: IV NS : initial bolus none -, then 1000 mL/hr for X1 (NOW) (02:08 03/25/2017 Benny Alatorre) (Ack 2:22 RCollier R.N.) (2:42 RCollier R.N.) ORDER SHEET NOTES: [Electronically signed by Camron Mata Dr. (03:43 03/25/2017)] [Electronically signed by Sarita Carballo R.N. (04:16 03/25/2017)] [Electronically locked/signed by Sarita Carballo R.N. (04:16 03/25/2017)]
--- NOTE | 2017-03-25 04:16 | ED MAR SUMMARY ---
..... Medication Administration Record [facility] [address] [place] [address] Patient: DAISHA MORRIS Visit ID: [id number] 27y, F Weight: 92.9 kg Height/Length: 69 in BMI: 30.3 ALLERGIES: No Known Drug Allergy Start 02:30 03/25/2017 Sarita Carballo RCleveNCleve Medication Administered: IV NS (SALINE), Dose: IV Fluids, Rate: 1000 mL/hr, Dispensed: 1000 mL bag, Site: #1 right AC. Medication Ordered: IV NS : initial bolus none -, then 1000 mL/hr for X1 (NOW).
--- NOTE | 2017-03-25 04:16 | ED MED RECONCILIATION SUMMARY ---
Patient: DAISHA MORRIS Medication Reconciliation Report [facility] VisitID: [id number] [address] [place] [address] 27y, F Registration Date/Time: 03/24/2017 Weight: 92.9 kg Height/Length: 69 in. BMI: 30.3 ALLERGIES: No Known Drug Allergy The patient's Home Medications are listed below: CONTINUE TAKING THE FOLLOWING MEDICATIONS: Amoxicillin Oral (500 mg) 1 capsule, three times daily, ear infection The source(s) of the original Home Medication information: Not obtained. The following Medications were given to the patient in the Emergency Department: IV NS IV Fluids bolus 0, then 1000 mL/hr, administered: 03/25/2017 2:30:00 AM The following Medications were prescribed to the patient: Macrobid 100 mg: take 1 capsule orally every 12 hours for 7 days. No refill. Substitution is permissible. -- Camron Mata Dr. Clindamycin 300 mg: take 1 capsule orally every 12 hours for 7 days. No refill. -- Camron Mata Dr.
--- NOTE | 2017-03-25 04:16 | ED MAR SUMMARY ---
..... Medication Administration Record [facility] [address] [place] [address] Patient: DAISHA MORRIS Visit ID: [id number] 27y, F Weight: 92.9 kg Height/Length: 69 in BMI: 30.3 ALLERGIES: No Known Drug Allergy Start 02:30 03/25/2017 Sarita Carballo RCleveNCleve Medication Administered: IV NS (SALINE), Dose: IV Fluids, Rate: 1000 mL/hr, Dispensed: 1000 mL bag, Site: #1 right AC. Medication Ordered: IV NS : initial bolus none -, then 1000 mL/hr for X1 (NOW).
--- NOTE | 2017-03-25 04:16 | ED DISCHARGE INSTRUCTIONS ---
Patient: DAISHA MORRIS General Instructions [facility] VisitID: [id number] [place] [address] 27y, F Registration Date/Time: 03/24/2017 ; positive test in emergency department. (B HCG is only 100). Acute urinary tract infection with cystitis. Acute mild bacterial vaginitis INSTRUCTIONS Warnings: GENERAL WARNINGS: Return or contact your physician immediately if your condition worsens or changes unexpectedly, if not improving as expected, or if other problems arise. SPECIFICALLY, return if there is no improvement in the pain in the pelvis. Your Current Medications: CONTINUE TAKING THE FOLLOWING MEDICATIONS: Amoxicillin Oral : Capsule 500 mg, 1 capsule three times daily, Started: 7 days ago, ear infection. Prescription Medications: Macrobid 100 mg: take 1 capsule orally every 12 hours for 7 days. No refill. Substitution is permissible. Clindamycin 300 mg: take 1 capsule orally every 12 hours for 7 days. No refill. Follow-up: Follow up with your doctor in about three days. Call for an appointment. Screening today revealed the patient's blood pressure to be in the pre-hypertensive range. The patient should follow up with a primary care provider for blood pressure management. ADDITIONAL INFORMATION Your exam today shows that you are . During , it is normal to develop tender swollen breasts, frequent urination and mild vaginal discharge. During the first three months, nausea is common. Guidelines For A Healthy : To ensure that your baby is born healthy there are certain things that you can do: When you feel tired, you should REST. This is especially true in the later months of . Your body needs more FLUIDS than you may be used to: You should drink 8-10 glasses of juice, milk or water. Eat well-balanced MEALS at regular intervals to supply your body with enough protein. You can expect a total weight gain of about 30 pounds during the . Do not try to diet or lose weight while you are . Because of the extra nutritional needs during , take one VITAMIN daily. Do not take any other MEDICINE during your (prescribed or [id number]) unless your doctor specifically recommends this. Many drugs can have harmful effects on the growing baby. If NAUSEA or VOMITING become a problem, avoid greasy and fried foods. Eat several smaller meals throughout the day rather than three large meals. If you SMOKE, you must stop. The nicotine you breathe in goes right to the baby. Stay away from ALCOHOL, even in moderate amounts. Daily drinking will harm your baby and can cause permanent brain damage. RECREATIONAL DRUGS are harmful, especially cocaine, crack, and heroin. Marijuana should also be avoided. If you were using recreational drugs or prescribed medicine when you found out that you were , talk to your doctor about possible effects on the fetus. Follow Up: Call to arrange for care. This can be provided by your family doctor, an cytopathology technologist ( specialist) or a primary care clinic. Get Prompt Medical Attention if any of the following occur: Vaginal bleeding Moderate or severe abdominal or back pain Excessive vomiting, unable to keep any fluids down for six hours Burning with urination Headache, dizziness or rapid weight gain Your exam today shows that you are . During , it is normal to develop tender swollen breasts, frequent urination and mild vaginal discharge. During the first three months, nausea is common. Guidelines For A Healthy : To ensure that your baby is born healthy there are certain things that you can do: When you feel tired, you should REST. This is especially true in the later months of . Your body needs more FLUIDS than you may be used to: You should drink 8-10 glasses of juice, milk or water. Eat well-balanced MEALS at regular intervals to supply your body with enough protein. You can expect a total weight gain of about 30 pounds during the . Do not try to diet or lose weight while you are . Because of the extra nutritional needs during , take one VITAMIN daily. Do not take any other MEDICINE during your (prescribed or [id number]) unless your doctor specifically recommends this. Many drugs can have harmful effects on the growing baby. If NAUSEA or VOMITING become a problem, avoid greasy and fried foods. Eat several smaller meals throughout the day rather than three large meals. If you SMOKE, you must stop. The nicotine you breathe in goes right to the baby. Stay away from ALCOHOL, even in moderate amounts. Daily drinking will harm your baby and can cause permanent brain damage. RECREATIONAL DRUGS are harmful, especially cocaine, crack, and heroin. Marijuana should also be avoided. If you were using recreational drugs or prescribed medicine when you found out that you were , talk to your doctor about possible effects on the fetus. Follow Up: Call to arrange for care. This can be provided by your family doctor, an cytopathology technologist ( specialist) or a primary care clinic. Get Prompt Medical Attention if any of the following occur: Vaginal bleeding Moderate or severe abdominal or back pain Excessive vomiting, unable to keep any fluids down for six hours Burning with urination Headache, dizziness or rapid weight gain Bladder Infection,Female (Adult) A bladder infection ("cystitis" or "UTI") usually causes a constant urge to urinate and a burning when passing urine. Urine may be cloudy, smelly or dark. There may be pain in the lower abdomen. A bladder infection occurs when bacteria from the vaginal area enter the bladder opening (urethra). This can occur from sexual intercourse, wearing tight clothing, dehydration and other factors. Home Care: Drink lots of fluids (at least 6-8 glasses a day, unless you must restrict fluids for other medical reasons). This will force the medicine into your urinary system and flush the bacteria out of your body. Avoid sexual intercourse until your symptoms are gone. Avoid caffeine, alcohol and spicy foods. These can irritate the bladder. A bladder infection is treated with antibiotics. You may also be given Pyridium (generic = phenazopyridine) to reduce the burning sensation. This medicine will cause your urine to become a bright orange color. The orange urine may stain clothing. You may wear a pad or panty-liner to protect clothing. Preventing Future Infections: Always wipe from front to back after a bowel movement. Keep the genital area clean and dry. Drink plenty of fluids each day to avoid dehydration. Both sexual partners should wash before intercourse. Urinate right after intercourse to flush out the bladder. Wear cotton underwear and cotton-lined panty hose; avoid tight-fitting pants. If you are on control pills and are having frequent bladder infections, discuss with your doctor. Follow Up: Return to this facility or see your doctor if ALL symptoms are not gone after three days of treatment. Get Prompt Medical Attention if any of the following occur: Fever of 100.4F (38C) or higher, or as directed by your healthcare provider No improvement by the third day of treatment Increasing back or abdominal pain Repeated vomiting; unable to keep medicine down Weakness, dizziness or fainting Vaginal discharge Pain, redness or swelling in the labia (outer vaginal area) Bacterial Vaginosis You have a bacterial infection of the vagina called bacterial vaginosis (BV). It may also be called gardnerella or non-specific vaginitis. BV occurs when the "bad" bacteria outnumber the "good" bacteria that are normally present in the vagina. Symptoms include foul-smelling vaginal discharge (most noticeable after vaginal intercourse). There may also be burning with urination. The burning is caused as the urine passes over the inflamed outer vaginal area. The cause of bacterial vaginosis is not certain. However, your risk is higher if you recently began a new sexual relationship, or have had many sex partners in the past. Your risk is also higher if you douche often. While bacterial vaginosis most often occurs only in sexually active women, this is not a true sexually transmitted disease. You did not get this from your partner. You cannot give it to your partner. The infection may be related to temporary changes in the pH of vaginal fluids after being exposed to semen. Home Care: Keep the genital area clean and free of discharge. Do this by wearing an absorbent sanitary pad and changing it often. Shower daily. When you shower, clean the outer vaginal area with plain soap and water. Do not douche during treatment unless advised to do so by your doctor. Routine douching after treatment is no longer recommended to clean the vagina. It raises your risk of vaginal infection and pelvic inflammatory disease. Avoid having sex until you have finished all antibiotic medicine and all symptoms have gone away. Wear cotton underwear or cotton-lined panty hose. Dont wear pants that are too tight. Limiting the number of sex partners you have lowers your risk of this and other vaginal infections, STDs, and HIV. Take all medicine as directed until it is gone, even if you are feeling better. If you dont do this, symptoms might return. Follow Up with your doctor if symptoms dont go away after the medicine is finished. Get Prompt Medical Attention if any of the following occur: Fever of 100.4F (38C) or higher, or as directed by your healthcare provider Lower abdominal pain Rash or joint pain Painful sores around the outer vaginal area or on your partners penis Nitrofurantoin, Nitrofurantoin, Macrocrystalline Oral capsule What is this medicine? NITROFURANTOIN (nick troe fyoor AN toyn) is an antibiotic. It is used to treat urinary tract infections. How should I use this medicine? Take this medicine by mouth with a glass of water. Follow the directions on the prescription label. Take this medicine with food or milk. Take your doses at regular intervals. Do not take your medicine more often than directed. Do not stop taking except on your doctor's advice. Talk to your hot tar roofer regarding the use of this medicine in children. While this drug may be prescribed for selected conditions, precautions do apply. What side effects may I notice from receiving this medicine? Side effects that you should report to your doctor or health doggy daycare activities director as soon as possible: allergic reactions like skin rash or hives, swelling of the face, lips, or tongue chest pain cough difficulty breathing dizziness, drowsiness fever or infection joint aches or pains pale or blue-tinted skin redness, blistering, peeling or loosening of the skin, including inside the mouth tingling, burning, pain, or numbness in hands or feet unusual bleeding or bruising unusually weak or tired yellowing of eyes or skin Side effects that usually do not require medical attention (report to your doctor or health doggy daycare activities director if they continue or are bothersome): dark urine diarrhea headache loss of appetite nausea or vomiting temporary hair loss What may interact with this medicine? antacids containing magnesium trisilicate probenecid quinolone antibiotics like ciprofloxacin, lomefloxacin, norfloxacin and ofloxacin sulfinpyrazone What if I miss a dose? If you miss a dose, take it as soon as you can. If it is almost time for your next dose, take only that dose. Do not take double or extra doses. Where should I keep my medicine? Keep out of the reach of children. Store at room temperature between 15 and 30 degrees C (59 and 86 degrees F). Protect from light. Throw away any unused medicine after the expiration date. What should I tell my health care provider before I take this medicine? They need to know if you have any of these conditions: anemia diabetes mfcrtjy-1-iqhuqropz dehydrogenase deficiency kidney disease liver disease lung disease other chronic illness an unusual or allergic reaction to nitrofurantoin, other antibiotics, other medicines, foods, dyes or preservatives or trying to get breast-feeding What should I watch for while using this medicine? Tell your doctor or health doggy daycare activities director if your symptoms do not improve or if you get new symptoms. Drink several glasses of water a day. If you are taking this medicine for a long time, visit your doctor for regular checks on your progress. If you are diabetic, you may get a false positive result for sugar in your urine with certain brands of urine tests. Check with your doctor. Clindamycin Hydrochloride Oral capsule What is this medicine? CLINDAMYCIN (ARTEM Romero) is a lincosamide antibiotic. It is used to treat certain kinds of bacterial infections. It will not work for colds, flu, or other viral infections. How should I use this medicine? Take this medicine by mouth with a full glass of water. Follow the directions on the prescription label. You can take this medicine with food or on an empty stomach. If the medicine upsets your stomach, take it with food. Take your medicine at regular intervals. Do not take your medicine more often than directed. Take all of your medicine as directed even if you think your are better. Do not skip doses or stop your medicine early. Talk to your hot tar roofer regarding the use of this medicine in children. Special care may be needed. What side effects may I notice from receiving this medicine? Side effects that you should report to your doctor or health doggy daycare activities director as soon as possible: allergic reactions like skin rash, itching or hives, swelling of the face, lips, or tongue dark urine pain on swallowing redness, blistering, peeling or loosening of the skin, including inside the mouth unusual bleeding or bruising unusually weak or tired yellowing of eyes or skin Side effects that usually do not require medical attention (report to your doctor or health doggy daycare activities director if they continue or are bothersome): diarrhea itching in the rectal or genital area joint pain nausea, vomiting stomach pain What may interact with this medicine? chloramphenicol erythromycin kaolin products What if I miss a dose? If you miss a dose, take it as soon as you can. If it is almost time for your next dose, take only that dose. Do not take double or extra doses. Where should I keep my medicine? Keep out of the reach of children. Store at room temperature between 20 and 25 degrees C (68 and 77 degrees F). Throw away any unused medicine after the expiration date. What should I tell my health care provider before I take this medicine? They need to know if you have any of these conditions: kidney disease liver disease stomach problems like colitis an unusual or allergic reaction to clindamycin, lincomycin, or other medicines, foods, dyes like tartrazine or preservatives or trying to get breast-feeding What should I watch for while using this medicine? Tell your doctor or healthcare professional if your symptoms do not start to get better or if they get worse. Do not treat diarrhea with over the counter products. Contact your doctor if you have diarrhea that lasts more than 2 days or if it is severe and watery. You have been given the following additional information: , New Dx , New Dx Bladder Infection, Female (Adult) Vaginitis, Bacterial Nitrofurantoin, Nitrofurantoin, Macrocrystalline Oral capsule Clindamycin Hydrochloride Oral capsule (Electronically signed by Camron Mata Dr. 03/25/2017 3:43)
--- NOTE | 2017-03-25 04:16 | ED MED RECONCILIATION SUMMARY ---
Patient: DAISHA MORRIS Medication Reconciliation Report [facility] VisitID: [id number] [place] [address] 27y, F Registration Date/Time: 03/24/2017 Weight: 92.9 kg Height/Length: 69 in. BMI: 30.3 ALLERGIES: No Known Drug Allergy The patient's Home Medications are listed below: CONTINUE TAKING THE FOLLOWING MEDICATIONS: Amoxicillin Oral (500 mg) 1 capsule, three times daily, ear infection The source(s) of the original Home Medication information: Not obtained. The following Medications were given to the patient in the Emergency Department: IV NS IV Fluids bolus 0, then 1000 mL/hr, administered: 03/25/2017 2:30:00 AM The following Medications were prescribed to the patient: Macrobid 100 mg: take 1 capsule orally every 12 hours for 7 days. No refill. Substitution is permissible. -- Camron Mata Dr. Clindamycin 300 mg: take 1 capsule orally every 12 hours for 7 days. No refill. -- Camron Mata Dr.
== END 2017-03-25 03:45 | disposition home or self-care (01) ==
LOC: ED SRH 22:30
DX: O23.11 Infections of bladder in pregnancy, first trimester (principal); N30.00 Acute cystitis without hematuria; O23.591 Infection of other part of genital tract in pregnancy, first trimester; N76.0 Acute vaginitis; B96.89 Other specified bacterial agents as the cause of diseases classified elsewhere; Z3A.00 Weeks of gestation of pregnancy not specified; O99.331 Smoking (tobacco) complicating pregnancy, first trimester; F17.210 Nicotine dependence, cigarettes, uncomplicated
CPT/HCPCS: 90004; 90100; 90195; 90197; 90469; 91227; 91228; 93070; 95059

== ENCOUNTER 2017-03-27 12:48 | Outpatient (CLI) | payer OTHER | END 2017-03-27 23:00 | LOC: LAB SRH 12:48 | DX: O23.40 Unspecified infection of urinary tract in pregnancy, unspecified trimester (principal); O23.599 Infection of other part of genital tract in pregnancy, unspecified trimester; N76.0 Acute vaginitis | CPT/HCPCS: 90074; 90197 ==